=== PATIENT | male | born 1945 | race Two or more races ===

== ENCOUNTER 2018-11-09 05:50 | Day surgery (SDC) | payer OTHER ==
[~2018-11-09 05:50] MED LIST: COZAAR100 MG PO; METROPLOL PO; OMEPRAZOLE PO
== END 2018-11-09 15:00 | disposition home or self-care (01) ==
LOC: CIR.AMB 05:50
DX: K42.9 Umbilical hernia without obstruction or gangrene (principal)

== ENCOUNTER → 2021-01-02 08:00 | Outpatient (CLI) | payer OTHER ==
[~2021-01-02 08:00] MED LIST changes: +AMLODIP PO; +ATORVASTATIN CA10 MG PO; +CENTRUM ADULTS1 EACH PO; +FLONASE16 GM
== END | disposition home or self-care (01) ==
LOC: ADM 08:00 → LAB 08:00 → CIR.AMB 01-08 08:00 → EDSTATUS 01-08 08:00 → CIR.AMB 01-08 10:30
PROVIDERS: ATTEND Orthopaedic Surgery
DX: S83.231A Complex tear of medial meniscus, current injury, right knee, initial encounter (principal); D68.8 Other specified coagulation defects; Z20.822 Contact with and (suspected) exposure to COVID-19; Z20.828 Contact with and (suspected) exposure to other viral communicable diseases; Z01.810 Encounter for preprocedural cardiovascular examination